=== PATIENT | male | born 1965 | race Caucasian/White ===

== ENCOUNTER 2020-07-07 23:24 | Emergency (ER) | payer OTHER ==
[~2020-07-07] VITALS: Ht 165.1 cm; Wt 75.3 kg
[2020-07-07 23:33] VITALS: BP 146/83
--- NOTE | 2020-07-08 | NUR ---
54 YO/M BIB SELF W C/O "CONSTANT PULSATING 10/10" MID/UPPER BACK PAIN, NECK PAIN, AND HEADACHE X5 DAYS. DENIES ANY INJURIES. REPORTS PAIN WORSENS WHEN HE LAYS DOWN. REPORTS HE HAS TAKEN MOTRIN, AND TYLENOL ACHIEVING SOME RELIEVE OF PAIN. PATIENT ALSO REPORTS A SQUEEZING SENSATION TO CHEST SINCE BACK PAIN BEGAN. S1 S2 PRESENT, PATIENT IS NSR ON MONITOR. LUNG SOUNDS CLEAR, BREATHING EVEN AND UNLABORED. RADIAL PULSES +2, CAP REFIL <3SEC. NO ACUTE DISTRESS NOTED. PMH: DIABETES NKA
--- NOTE | 2020-07-08 00:05 | NUR ---
ERMD AT BEDSIDE ASSESSING PATIENT.
--- NOTE | 2020-07-08 00:13 | NUR ---
RADIOLOGY AT BEDSIDE.
[2020-07-08] MEDS: KETOROLAC 30 MG/ML VIAL IM ONE (00:26)
--- NOTE | 2020-07-08 01:17 | NUR ---
PATIENT REPORTS PAIN LEVEL 0/10 FOLLOWING TORADOL MEDICATION. PATIENT REFUSES BLOOD WORK AT THIS TIME AND REPORTS HE WILL FOLLOW UP WITH HIS PCP OR RETURN TO ER IF SYMPTOMS RE-OCCUR OR PERSIST.
[2020-07-08] MEDS ORDERED: IBUP-2218 PO (01:22)
[2020-07-08 02:13] VITALS: BP 116/67
== END 2020-07-08 02:13 | disposition home or self-care (01) ==
LOC: MED 23:24
DX: M54.6 Pain in thoracic spine (principal); R07.9 Chest pain, unspecified; E11.9 Type 2 diabetes mellitus without complications
CPT/HCPCS: 71045; 93005; 96372; 99283; J1885

== ENCOUNTER 2022-03-18 19:47 | Emergency (ER) | payer OTHER ==
[~2022-03-18] VITALS: Ht 162.6 cm; Wt 73.5 kg
[~2022-03-18 19:47] MED LIST: IBUP-2218 PO
[2022-03-18 19:52] VITALS: BP 134/88
--- NOTE | 2022-03-18 20:20 | NUR ---
PT TO 12
--- NOTE | 2022-03-18 20:22 | NUR ---
pt has headache and nausea at home and he also happened to check his sugar at home and it resutyed high number. He also mentioned he tried to eat and he didnt feel great. Otherwise he is alert oriented x4, welsh speaker, room air and ambulatory
[2022-03-18] MEDS ORDERED: NACL 0.9% 1,000 ML IV ONE (20:25)
--- NOTE | 2022-03-18 20:27 | NUR ---
He said he has been feeling more lethargic and more sleepy lately.
[2022-03-18 20:48] LABS: BASOPHILS # (AUTO) 0.1 K/uL (0.00-0.22); BASOPHILS % (AUTO) 1.2 % (0.0-2.0); EOSINOPHILS # (AUTO) 0.4 K/uL (0-0.4); EOSINOPHILS % (AUTO) 6.3 % (0.0-4.0); HEMATOCRIT 40.2 % (36-52); HEMOGLOBIN 14.1 g/dL (12.0-18.0); LYMPHOCYTES # (AUTO) 1.6 K/uL (2.0-11.5); LYMPHOCYTES % (AUTO) 27.8 % (20.5-51.1); MEAN CORPUSCULAR HEMOGLOBIN 30 pg (27-31); MEAN CORPUSCULAR HGB CONC 35 g/dL (33-37); MEAN CORPUSCULAR VOLUME 84.2 fL (80-94); MONOCYTES # (AUTO) 0.3 K/uL (0.8-1.0); MONOCYTES % (AUTO) 4.6 % (1.7-9.3); NEUTROPHILS # (AUTO) 3.4 K/uL (1.8-7.7); NEUTROPHILS % (AUTO) 60.1 % (42.2-75.2); PLATELET COUNT (AUTO) 305 K/uL (140-450); RED BLOOD CELL COUNT(AUTO) 4.77 MIL/uL (4.20-6.10); RED CELL DISTRIBUTION WIDTH 12.4 % (11.6-13.7); WHITE BLOOD COUNT (AUTO) 5.6 K/uL (4.8-10.8)
[2022-03-18 20:54] LABS: APPEARANCE,URINE CLEAR (CLEAR); COLOR,URINE YELLOW (YELLOW); PH,URINE 6.5 (5.0-9.0)
[2022-03-18 20:55] LABS: BILIRUBIN,URINE NEGATIVE (NEGATIVE); BLOOD, URINE NEGATIVE (NEGATIVE); LEUKOCYTE ESTERASE ,URINE NEGATIVE (NEGATIVE); NITRITE, URINE NEGATIVE (NEGATIVE); UGLUCOSE >=1000 (NEGATIVE)
[2022-03-18 21:02] LABS: ANION GAP 16.9 (8-16); CARBON DIOXIDE 25.3 mmol/L (21-32); CREATININE 1.6 mg/dL (0.6-1.3); POTASSIUM 4.2 mmol/L (3.5-5.1)
[2022-03-18] MEDS ORDERED: INSULIN REGULAR, HUMAN 100 UNIT/ML VIAL SUBQ ONE (21:10)
[2022-03-18 22:33] VITALS: BP 134/88
--- NOTE | 2022-03-18 22:34 | NUR ---
blood sugar now 268 after insulin
--- NOTE | 2022-03-18 22:35 | NUR ---
Patient discharged with v/s stable. Written and verbal after care instructions given and explained. Patient verbalized understanding. Ambulatory with steady gait. All questions addressed prior to discharge. Advised to follow up with PMD. pt left with his oralia
--- NOTE | 2022-03-19 15:36 | NUR ---
LATE ENTRY---CONFIRMED WITH RN NS INFUSION END TIME IS 213703/18/22
== END 2022-03-18 22:30 | disposition home or self-care (01) ==
LOC: MED 19:47
DX: E11.65 Type 2 diabetes mellitus with hyperglycemia (principal); R79.89 Other specified abnormal findings of blood chemistry; K21.9 Gastro-esophageal reflux disease without esophagitis; I10 Essential (primary) hypertension; E07.9 Disorder of thyroid, unspecified; E78.5 Hyperlipidemia, unspecified; Z79.899 Other long term (current) drug therapy; Z79.84 Long term (current) use of oral hypoglycemic drugs
CPT/HCPCS: 36415; 80048; 81003; 82948; 85025; 96360; 96372; 99283; J1815; J7030